=== PATIENT | female | born 1975 | race Two or more races ===

== ENCOUNTER → 2017-10-21 15:52 | Outpatient (CLI) | payer OTHER | END | disposition home or self-care (01) | LOC: LAB 15:52 | DX: R50.9 Fever, unspecified (principal) ==

== ENCOUNTER → 2017-10-21 | Outpatient (CLI) | payer OTHER ==
[~2017-10-21] VITALS: Ht 152.4 cm; Wt 56.2 kg
[~2017-10-21] MED LIST: ALBUTEROL2.5 MG/3 M IH; CIPRO500 MG PO; GLIMEPIRIDE2 MG PO; GLIMEPIRIDE4 MG PO; IOPHEN DM-100 MG/5 M PO; JANUMET 50-5001 EACH PO; METFORMIN HCL500 MG PO; NAPROXEN500 MG PO; PEPCID40 MG PO; ZOFRAN4 MG PO; ZYNCOF 20-400120 ML PO
== END | disposition home or self-care (01) ==
LOC: PPHC 14:51
DX: B34.9 Viral infection, unspecified (principal)

== ENCOUNTER → 2017-11-08 09:44 | Outpatient (CLI) | payer OTHER | END | disposition home or self-care (01) | LOC: LAB 09:44 | DX: E03.8 Other specified hypothyroidism (principal); E11.65 Type 2 diabetes mellitus with hyperglycemia; E78.2 Mixed hyperlipidemia ==

== ENCOUNTER 2018-03-29 07:16 | Outpatient (CLI) | payer OTHER | END 2018-03-29 07:25 | disposition home or self-care (01) | LOC: LAB 07:16 | DX: R73.9 Hyperglycemia, unspecified (principal); E78.4 Other hyperlipidemia ==

== ENCOUNTER 2018-07-22 07:24 | Outpatient (CLI) | payer OTHER | END 2018-07-22 13:55 | disposition home or self-care (01) | LOC: MAMO-SONO 07:24 | DX: Z12.31 Encounter for screening mammogram for malignant neoplasm of breast (principal); N60.11 Diffuse cystic mastopathy of right breast; N60.12 Diffuse cystic mastopathy of left breast ==

== ENCOUNTER 2018-11-09 08:43 | Emergency (ER) | payer OTHER ==
[~2018-11-09] VITALS: Ht 157.5 cm; Wt 59.0 kg
[2018-11-09] MEDS ORDERED: GLUMETZA500 MG (08:55)
[2018-11-09] MEDS ORDERED: HUMULIN N100 UNIT/2 (08:56)
[2018-11-09] MEDS ORDERED: KETO10TA2 PO (09:38)
== END 2018-11-09 09:45 | disposition home or self-care (01) ==
LOC: ER 08:43
DX: H10.89 Other conjunctivitis (principal)

== ENCOUNTER 2018-12-25 11:11 | Emergency (ER) | payer OTHER ==
[~2018-12-25] VITALS: Ht 157.5 cm; Wt 59.0 kg
[~2018-12-25 11:11] MED LIST changes: +GLUMETZA500 MG; +HUMULIN N100 UNIT/2; +KETO10TA2 PO
[2018-12-25] MEDS ORDERED: DUI500 PO (13:40)
== END 2018-12-25 14:00 | disposition home or self-care (01) ==
LOC: ER 11:11
DX: S91.121A Laceration with foreign body of right great toe without damage to nail, initial encounter (principal); W22.8XXA Striking against or struck by other objects, initial encounter; Y93.89 Activity, other specified; Y92.092 Bedroom in other non-institutional residence as the place of occurrence of the external cause; Y99.8 Other external cause status

== ENCOUNTER → 2019-07-11 14:19 | Outpatient (CLI) | payer OTHER ==
[~2019-07-11 14:19] MED LIST changes: +DUI500 PO
== END | disposition home or self-care (01) ==
LOC: LAB 14:19
DX: R05 Cough (principal); J11.1 Influenza due to unidentified influenza virus with other respiratory manifestations

== ENCOUNTER 2019-09-20 15:40 | Outpatient (CLI) | payer OTHER | END 2019-09-20 15:46 | disposition home or self-care (01) | LOC: LAB 15:40 | DX: J11.1 Influenza due to unidentified influenza virus with other respiratory manifestations (principal) ==

== ENCOUNTER → 2019-10-05 09:36 | Outpatient (CLI) | payer OTHER | END | disposition home or self-care (01) | LOC: LAB 09:36 | DX: J11.1 Influenza due to unidentified influenza virus with other respiratory manifestations (principal); R10.84 Generalized abdominal pain ==

== ENCOUNTER → 2020-08-21 08:51 | Outpatient (CLI) | payer OTHER | END | disposition home or self-care (01) | LOC: LAB 08:51 | PROVIDERS: ATTEND General Practice | DX: R05 Cough (principal); Z11.3 Encounter for screening for infections with a predominantly sexual mode of transmission ==

== ENCOUNTER → 2020-12-10 | Outpatient (CLI) | payer OTHER | END | disposition home or self-care (01) | LOC: MAMO-SONO 10:15 | PROVIDERS: ATTEND Internal Medicine Cardiovascular Disease | DX: N63.11 Unspecified lump in the right breast, upper outer quadrant (principal) ==

== ENCOUNTER 2020-12-17 07:07 | Outpatient (CLI) | payer OTHER | END 2020-12-17 07:09 | disposition home or self-care (01) | LOC: LAB 07:07 | PROVIDERS: ATTEND Internal Medicine Cardiovascular Disease | DX: E11.9 Type 2 diabetes mellitus without complications (principal); I10 Essential (primary) hypertension; E03.8 Other specified hypothyroidism; E78.2 Mixed hyperlipidemia; E55.9 Vitamin D deficiency, unspecified ==

== ENCOUNTER 2021-06-14 10:46 | Emergency (ER) | payer OTHER ==
[~2021-06-14] VITALS: Ht 157.5 cm; Wt 59.0 kg
[2021-06-14] MEDS ORDERED: LANTUS SOL100 UNIT/1 SQ (10:56)
[2021-06-14] MEDS ORDERED: ZITHROMAX TRI-500 MG PO (12:56)
== END 2021-06-14 12:59 | disposition home or self-care (01) ==
LOC: ER 10:46
DX: B34.9 Viral infection, unspecified (principal); Z03.818 Encounter for observation for suspected exposure to other biological agents ruled out

== ENCOUNTER 2021-08-20 09:00 | Outpatient (CLI) | payer OTHER ==
[~2021-08-20 09:00] MED LIST changes: +LANTUS SOL100 UNIT/1 SQ; +ZITHROMAX TRI-500 MG PO
== END 2021-08-20 09:15 | disposition home or self-care (01) ==
LOC: PPH VACUNA 09:00
PROVIDERS: ATTEND Emergency Medicine Pediatric Emergency Medicine
DX: Z23 Encounter for immunization (principal)

== ENCOUNTER 2021-09-18 19:04 | Emergency (ER) | payer OTHER ==
[~2021-09-18] VITALS: Ht 154.9 cm; Wt 59.9 kg
== END 2021-09-18 21:22 | disposition home or self-care (01) ==
LOC: ER 19:04
DX: B34.9 Viral infection, unspecified (principal); E11.9 Type 2 diabetes mellitus without complications; Z79.84 Long term (current) use of oral hypoglycemic drugs; Z20.822 Contact with and (suspected) exposure to COVID-19

== ENCOUNTER 2021-10-13 08:00 | Outpatient (CLI) | payer OTHER | END 2021-10-13 08:30 | disposition home or self-care (01) | LOC: PPH VACUNA 08:00 | PROVIDERS: ATTEND Emergency Medicine Pediatric Emergency Medicine | DX: Z23 Encounter for immunization (principal) ==

== ENCOUNTER 2021-11-13 10:14 | Emergency (ER) | payer OTHER ==
[~2021-11-13] VITALS: Ht 157.5 cm; Wt 58.5 kg
== END 2021-11-13 12:16 | disposition home or self-care (01) ==
LOC: ER 10:14
DX: U07.1 COVID-19 (principal)

== ENCOUNTER 2021-11-13 12:49 | Outpatient (CLI) | payer OTHER | END 2021-11-13 13:00 | disposition home or self-care (01) | LOC: ASH CLINIC 12:49 | PROVIDERS: ATTEND Emergency Medicine | DX: U07.1 COVID-19 (principal); Z23 Encounter for immunization ==

== ENCOUNTER 2021-12-25 10:09 | Emergency (ER) | payer OTHER ==
[~2021-12-25] VITALS: Ht 157.5 cm; Wt 59.0 kg
[2021-12-25] MEDS ORDERED: LANTUS SOL100 UNIT/1 (10:22)
== END 2021-12-25 11:10 | disposition home or self-care (01) ==
LOC: ER 10:09
DX: H10.13 Acute atopic conjunctivitis, bilateral (principal)

== ENCOUNTER 2022-01-13 20:35 | Emergency (ER) | payer OTHER ==
[~2022-01-13] VITALS: Ht 157.5 cm; Wt 58.1 kg
[~2022-01-13 20:35] MED LIST changes: +LANTUS SOL100 UNIT/1
[2022-01-13] MEDS ORDERED: LEVOFLOXACIN500 MG PO (22:43)
== END 2022-01-13 23:50 | disposition home or self-care (01) ==
LOC: ER 20:35
DX: B34.9 Viral infection, unspecified (principal); A49.3 Mycoplasma infection, unspecified site; Z20.822 Contact with and (suspected) exposure to COVID-19

== ENCOUNTER 2022-03-23 10:00 | Emergency (ER) | payer OTHER ==
[~2022-03-23] VITALS: Ht 157.5 cm; Wt 59.0 kg
[~2022-03-23 10:00] MED LIST changes: +LEVOFLOXACIN500 MG PO
[2022-03-23] MEDS ORDERED: NORFLEX100MG PO (12:53)
[2022-03-23] MEDS ORDERED: KETO10TA2 PO (12:53)
[2022-03-23] MEDS ORDERED: FLUCONAZOLE150 MG PO (12:57)
== END 2022-03-23 13:10 | disposition home or self-care (01) ==
LOC: ER 10:00
DX: M54.59 Other low back pain (principal); R11.0 Nausea; E11.9 Type 2 diabetes mellitus without complications; Z79.4 Long term (current) use of insulin; Z79.899 Other long term (current) drug therapy; Z20.822 Contact with and (suspected) exposure to COVID-19

== ENCOUNTER 2023-02-23 09:49 | Outpatient (CLI) | payer OTHER ==
[~2023-02-23 09:49] MED LIST changes: +FLUCONAZOLE150 MG PO; +NORFLEX100MG PO
== END 2023-02-23 09:55 | disposition home or self-care (01) ==
LOC: LAB 09:49
PROVIDERS: ATTEND Emergency Medicine Pediatric Emergency Medicine
DX: Z20.828 Contact with and (suspected) exposure to other viral communicable diseases (principal); J11.1 Influenza due to unidentified influenza virus with other respiratory manifestations; R50.9 Fever, unspecified; R05.8 Other specified cough; A49.3 Mycoplasma infection, unspecified site